=== PATIENT | female | born 1980 | race Caucasian/White ===

== ENCOUNTER 2018-02-02 13:53 | Outpatient (CLI) | payer OTHER ==
[~2018-02-02 13:53] MED LIST: NO HOME MEDS
[2018-02-05 11:12] LABS: VITAMIN D, 25-HYDROXY 20.7 ng/mL (30.0-100.0)
== END 2018-02-02 23:59 | disposition home or self-care (01) ==
LOC: LAB 13:53
PROVIDERS: ATTEND Physician Assistant Medical
DX: R53.83 Other fatigue (principal)
CPT/HCPCS: 36415; 82306; 84436; 84443; 84480

== ENCOUNTER 2018-12-21 14:54 | Outpatient (CLI) | payer OTHER ==
[2018-12-21 15:32] LABS: BASOPHILS % (AUTO) 0.8 % (0-1); EOSINOPHILS # (AUTO) 0.1 X10'3 (0-0.9); EOSINOPHILS % (AUTO) 1.9 % (0-6); HEMATOCRIT 39.5 % (35.0-45.0); HEMOGLOBIN 13.4 g/dl (12.0-16.0); LYMPHOCYTES # (AUTO) 1.1 X10'3 (1.1-4.8); LYMPHOCYTES % (AUTO) 19.2 % (21-51); MEAN CORPUSCULAR HEMOGLOBIN 31.2 PG (27.0-31.0); MEAN CORPUSCULAR HGB CONC 33.9 % (33.0-36.5); MEAN CORPUSCULAR VOLUME 92.2 FL (78-98); MEAN PLATELET VOLUME 6.9 FL (7.4-10.4); MONOCYTES # (AUTO) 0.3 X10'3 (0-0.9); MONOCYTES % (AUTO) 5.4 % (2-12); NEUTROPHILS # (AUTO) 4.2 X10'3 (1.8-7.7); NEUTROPHILS % (AUTO) 72.7 % (42-75); PLATELET COUNT 245 X10'3 (140-440); RED BLOOD COUNT 4.28 X10'6 (4.20-5.60); RED CELL DISTRIBUTION WIDTH 13.1 % (11.5-14.5); WHITE BLOOD COUNT 5.8 X10'3 (4.5-11.0)
[2018-12-21 15:57] LABS: ALANINE AMINOTRANSFERASE 36 U/L (12-78); ALBUMIN 3.6 G/DL (3.4-5.0); ALKALINE PHOSPHATASE 38 IU/L (46-116); ANION GAP 10 (8-16); ASPARTATE AMINO TRANSFERASE 21 U/L (10-37); BILIRUBIN,TOTAL 0.4 MG/DL (0.1-1.0); BLOOD UREA NITROGEN 16 MG/DL (7-18); BUN/CREATININE RATIO 23.2 (6.6-38.0); CALCIUM 8.2 MG/DL (8.5-10.1); CHLORIDE 102 MMOL/L (99-107); CHOL/HDL RATIO 2.5 (0.00-4.99); CHOLESTEROL 168 MG/DL (0-200); CREATININE 0.69 MG/DL (0.40-0.90); GLUCOSE 97 MG/DL (70-104); HDL CHOLESTEROL 68 MG/DL (35-60); LDL CHOLESTEROL 88 MG/DL (50-100); POTASSIUM 3.6 MMOL/L (3.5-5.1); SODIUM 138 MMOL/L (135-145); TOTAL CARBON DIOXIDE 25.6 MMOL/L (24-32); TOTAL PROTEIN 7.2 G/DL (6.4-8.2); TRIGLYCERIDES 68 MG/DL (20-135); eGFR > 90 ML/MIN
[2018-12-21 16:09] LABS: HEMOGLOBIN A1C 5.3 % (4.5-6.2)
[2018-12-23 08:11] LABS: THYROID PEROXIDASE AB 7 IU/mL (0-34); TRIIODOTHYRONINE (T3) 100 ng/dL (71-180)
[2018-12-23 13:11] LABS: FSH, SERUM 3.6 mIU/mL (.); LUTEINIZING HORMONE 10.4 mIU/mL (.); PROGESTERONE 0.8 ng/mL (.)
== END 2018-12-21 23:59 | disposition home or self-care (01) ==
LOC: LAB 14:54
PROVIDERS: ATTEND Physician Assistant Medical
DX: Z13.220 Encounter for screening for lipoid disorders (principal); R61 Generalized hyperhidrosis; N92.0 Excessive and frequent menstruation with regular cycle; Z87.891 Personal history of nicotine dependence
CPT/HCPCS: 36415; 80053; 80061; 82679; 83001; 83002; 83036; 84144; 84402; 84403; 84439; 84443; 84480; 85025; 86376

== ENCOUNTER 2019-01-02 12:43 | Outpatient (CLI) | payer OTHER | END 2019-01-02 23:59 | disposition home or self-care (01) | LOC: LAB 12:43 | PROVIDERS: ATTEND Physician Assistant Medical | DX: E55.9 Vitamin D deficiency, unspecified (principal); Z87.442 Personal history of urinary calculi; Z87.891 Personal history of nicotine dependence | CPT/HCPCS: 36415; 82306 ==

== ENCOUNTER 2019-08-28 09:13 | Outpatient (CLI) | payer OTHER | END 2019-08-28 23:59 | disposition home or self-care (01) | LOC: 64 CT 09:13 | PROVIDERS: ATTEND Surgery | DX: R10.9 Unspecified abdominal pain (principal) | CPT/HCPCS: 74176 ==

== ENCOUNTER 2019-11-23 08:51 | Emergency (ER) | payer OTHER ==
[~2019-11-23] VITALS: Ht 175.3 cm; Wt 98.0 kg
[2019-11-23 08:55] VITALS: BP 141/96
[2019-11-23] MEDS ORDERED: dexamethasone sod phosphate 10mg/ml inj PO STA (09:13)
[2019-11-23] MEDS ORDERED: AZIT-72 PO (09:16)
== END 2019-11-23 09:27 | disposition home or self-care (01) ==
LOC: ER 08:52
DX: J32.9 Chronic sinusitis, unspecified (principal); Z98.890 Other specified postprocedural states; Z88.8 Allergy status to other drugs, medicaments and biological substances; Z79.899 Other long term (current) drug therapy
CPT/HCPCS: 99283; J1100

== ENCOUNTER 2019-12-28 08:46 | Outpatient (CLI) | payer OTHER | END 2019-12-28 23:59 | disposition home or self-care (01) | LOC: LAB 08:46 | PROVIDERS: ATTEND Obstetrics & Gynecology Obstetrics | DX: Z00.00 Encounter for general adult medical examination without abnormal findings (principal); Z53.21 Procedure and treatment not carried out due to patient leaving prior to being seen by health care provider ==

== ENCOUNTER 2019-12-28 08:54 | Outpatient (CLI) | payer OTHER ==
[2019-12-28 09:36] LABS: BASOPHILS % (AUTO) 0.4 % (0-1); EOSINOPHILS # (AUTO) 0.1 X10'3 (0-0.9); EOSINOPHILS % (AUTO) 2.1 % (0-6); HEMATOCRIT 44.5 % (35.0-45.0); HEMOGLOBIN 15.3 g/dl (12.0-16.0); LYMPHOCYTES # (AUTO) 1.2 X10'3 (1.1-4.8); LYMPHOCYTES % (AUTO) 21.2 % (21-51); MEAN CORPUSCULAR HEMOGLOBIN 30.9 PG (27.0-31.0); MEAN CORPUSCULAR HGB CONC 34.4 g/dL (33.0-36.5); MONOCYTES # (AUTO) 0.3 X10'3 (0-0.9); MONOCYTES % (AUTO) 5.8 % (2-12); NEUTROPHILS # (AUTO) 3.9 X10'3 (1.8-7.7); NEUTROPHILS % (AUTO) 70.5 % (42-75); PLATELET COUNT 248 X10'3 (140-440); RED BLOOD COUNT 4.94 X10'6 (4.20-5.60); RED CELL DISTRIBUTION WIDTH 13.1 % (11.5-14.5); WHITE BLOOD COUNT 5.6 X10'3 (4.5-11.0)
[2019-12-28] MEDS ORDERED: iohexol 300mg/ml 100ml inj. ONE (09:40)
[2019-12-28 11:00] LABS: ALANINE AMINOTRANSFERASE 49 U/L (12-78); ALBUMIN 4.6 G/DL (3.4-5.0); ALBUMIN/GLOBULIN RATIO 1.1 (1.1-1.5); ALKALINE PHOSPHATASE 53 IU/L (46-116); ANION GAP 11 (8-16); ASPARTATE AMINO TRANSFERASE 26 U/L (10-37); BILIRUBIN,TOTAL 0.7 MG/DL (0.1-1.0); BLOOD UREA NITROGEN 10 MG/DL (7-18); BUN/CREATININE RATIO 14.7 (6.6-38.0); CHLORIDE 103 MMOL/L (99-107); CHOL/HDL RATIO 3.4 (0.00-4.99); CHOLESTEROL 215 MG/DL (0-200); CREATININE 0.68 MG/DL (0.40-0.90); GLUCOSE 88 MG/DL (70-104); HDL CHOLESTEROL 64 MG/DL (35-60); LDL CHOLESTEROL 137 MG/DL (50-100); POTASSIUM 4.1 MMOL/L (3.5-5.1); SODIUM 141 MMOL/L (135-145); TOTAL PROTEIN 8.8 G/DL (6.4-8.2); TRIGLYCERIDES 69 MG/DL (20-135); eGFR > 90 ML/MIN
[2019-12-28 12:05] LABS: HEMOGLOBIN A1C 5.3 % (4.5-6.2)
== END 2019-12-28 23:59 | disposition home or self-care (01) ==
LOC: 64 CT 08:54
PROVIDERS: ATTEND Surgery
DX: N83.201 Unspecified ovarian cyst, right side (principal); K43.9 Ventral hernia without obstruction or gangrene; M62.00 Separation of muscle (nontraumatic), unspecified site; R10.9 Unspecified abdominal pain
CPT/HCPCS: 36415; 74177; 80053; 80061; 83036; 84443; 85025; Q9967

== ENCOUNTER 2022-08-10 13:22 | Inpatient (IN) | payer BC, OTHER ==
[~2022-08-10] VITALS: Ht 175.3 cm; Wt 122.7 kg
[2022-08-10 14:59] LABS: BASOPHILS % (AUTO) 0.3 % (0-1); EOSINOPHILS # (AUTO) 0.1 X10'3 (0-0.9); EOSINOPHILS % (AUTO) 1.5 % (0-6); HEMATOCRIT 42.1 % (35.0-45.0); HEMOGLOBIN 14.6 g/dl (12.0-16.0); LYMPHOCYTES # (AUTO) 1.5 X10'3 (1.1-4.8); LYMPHOCYTES % (AUTO) 16.7 % (21-51); MEAN CORPUSCULAR HEMOGLOBIN 31.5 PG (27.0-31.0); MEAN CORPUSCULAR HGB CONC 34.7 g/dL (33.0-36.5); MEAN CORPUSCULAR VOLUME 90.9 FL (78-98); MEAN PLATELET VOLUME 7.2 FL (7.4-10.4); MONOCYTES # (AUTO) 0.5 X10'3 (0-0.9); MONOCYTES % (AUTO) 5.9 % (2-12); NEUTROPHILS # (AUTO) 6.6 X10'3 (1.8-7.7); NEUTROPHILS % (AUTO) 75.6 % (42-75); PLATELET COUNT 254 X10'3 (140-440); RED BLOOD COUNT 4.63 X10'6 (4.20-5.60); RED CELL DISTRIBUTION WIDTH 13.3 % (11.5-14.5); WHITE BLOOD COUNT 8.7 X10'3 (4.5-11.0)
[2022-08-10 15:05] LABS: ALANINE AMINOTRANSFERASE 36 U/L (12-78); ALBUMIN 3.6 G/DL (3.4-5.0); ALBUMIN/GLOBULIN RATIO 0.9 (1.1-1.5); ALKALINE PHOSPHATASE 48 IU/L (46-116); ANION GAP 11 (8-16); ASPARTATE AMINO TRANSFERASE 22 U/L (10-37); BILIRUBIN,TOTAL 0.4 MG/DL (0.1-1.0); BLOOD UREA NITROGEN 8 MG/DL (7-18); BUN/CREATININE RATIO 12.1 (6.6-38.0); CALCIUM 8.8 MG/DL (8.5-10.1); CHLORIDE 101 MMOL/L (99-107); CREATININE 0.66 MG/DL (0.40-0.90); GLUCOSE 97 MG/DL (70-104); LIPASE 59 U/L (73-393); POTASSIUM 3.9 MMOL/L (3.5-5.1); SODIUM 136 MMOL/L (135-145); TOTAL CARBON DIOXIDE 24.4 MMOL/L (24-32); TOTAL PROTEIN 7.4 G/DL (6.4-8.2); eGFR > 90 ML/MIN
[2022-08-10 15:10] LABS: COLOR,URINE YELLOW (Yellow); GLUCOSE, URINE NEGATIVE (Neg); KETONES,URINE TRACE mg/dl (Neg); LEUKOCYTE ESTERASE ,URINE NEGATIVE (Neg); NITRITES, URINE NEGATIVE (Neg); OCCULT BLOOD,URINE NEGATIVE (Neg); PH,URINE 6.5 (4.8-8.0); PROTEIN,URINE NEGATIVE (Neg); UROBILINOGEN,URINE 0.2 E.U/dL (0.2-1.0)
[2022-08-10 15:16] LABS: CLARITY,URINE SLIGHTLY CLOUDY (Clear); UA COLLECTION TYPE CLN CATCH MIDSTREAM
[2022-08-10 15:18] LABS: SQUAMOUS EPITHELIAL CELL,UR MANY /LPF (FEW)
[2022-08-10 15:19] LABS: MUCUS STRANDS MANY /LPF (Neg)
[2022-08-10 15:21] LABS: BACTERIA,URINE FEW /HPF (Neg); RBC,URINE NONE SEEN /HPF (0-2); URINE HCG NEGATIVE (NEG); WBC,URINE 0-4 /HPF (0-4)
[2022-08-10] MEDS ORDERED: ketorolac trometh. 30mg/ml inj. IV ONE (16:15)
[2022-08-10] MEDS ORDERED: normal saline 1000ML IV soln IVB ONE (16:15)
[2022-08-10] MEDS ORDERED: ondansetron/PF 4mg/2ml inj IV ONE (16:15)
[2022-08-10] MEDS: morphine 4 MG/ML inj SYRINge IV PRN ×2 (16:27→17:10)
[2022-08-10] MEDS ORDERED: magnesium 4gm in 100ml NS 100 ML IV PRN (17:15)
[2022-08-10] MEDS ORDERED: magnesium 2GM in 50ml NS 50 ML IV PRN (17:15)
[2022-08-10] MEDS ORDERED: ondansetron/PF 4mg/2ml inj IV PRN (17:15)
[2022-08-10] MEDS ORDERED: potassium CL 10mEq/100ml bag 100 ML IV PRN (17:15)
[2022-08-10] MEDS ORDERED: magnesium hydroxide 30ml (MOM) UD suspension PO PRN (17:15)
[2022-08-10] MEDS ORDERED: mag hydrox/Alum hydrox/simeth 30ml oral suspension PO PRN (17:15)
[2022-08-10] MEDS ORDERED: magnesium Cl slow-release 64mg tablet PO PRN (17:15)
[2022-08-10] MEDS ORDERED: HYDROmorphone/PF 0.2 MG/ML SYRINGE IV PRN (17:15)
[2022-08-10] MEDS ORDERED: metoclopramide 5 mg/ml inj IV PRN (17:15)
[2022-08-10] MEDS ORDERED: acetaminophen 325mg tablet PO PRN ×2 (17:15)
[2022-08-10] MEDS ORDERED: acetaminophen 650mg rectal suppository RC PRN (17:15)
[2022-08-10] MEDS ORDERED: POTASSIUM BICARB 20meq eff tab 20 MEQ TABLET.EFF PO PRN ×2 (17:15)
[2022-08-10] MEDS ORDERED: ondansetron 4mg rapidly disintigrating tab PO PRN (17:15)
[2022-08-10] MEDS ORDERED: bisacodyl 10mg suppository rectal RC PRN (17:15)
[2022-08-10 17:33] LABS: MAGNESIUM 1.8 MG/DL (1.5-2.4)
[2022-08-10] MEDS ORDERED: LEVA15HF6 PO (17:45)
[2022-08-10] MEDS ORDERED: LISI10TA27 PO (17:45)
--- NOTE | 2022-08-10 17:47 | NUR ---
patient received in room 6.
[2022-08-10] MEDS ORDERED: LIDOcaine 2% 10ml TOPICAL JELLY (Urojet) MM ONE (18:10)
[2022-08-10] MEDS ORDERED: albuterol 2.5 MG/3 ML nebule NEB PRN (18:15)
[2022-08-10] MEDS: normal saline 1000ml 1,000 ML IV SCH (19:16)
[2022-08-10] MEDS: K and/or MAG REPLACEMENT MC SCH (19:59)
[2022-08-10] MEDS: docusate sod 100mg capsule PO SCH (20:00)
[2022-08-10] MEDS: HYDROmorphone inj. 0.5 MG/0.5 ML DISP.SYRIN IV PRN (21:11)
[2022-08-11] VITALS (16 sets, daily range): BP systolic 130–157; BP diastolic 64–102
[2022-08-11] MEDS: HYDROmorphone inj. 0.5 MG/0.5 ML DISP.SYRIN IV PRN ×6 (00:54→20:15)
[2022-08-11] MEDS: normal saline 1000ml 1,000 ML IV SCH ×3 (03:12→23:15)
--- NOTE | 2022-08-11 03:12 | NUR ---
Patient up to the bathroom w/o problem.
[2022-08-11] MEDS: K and/or MAG REPLACEMENT MC SCH ×2 (07:43→20:00)
[2022-08-11] MEDS: lisinopril 10 MG tablet PO SCH (07:52)
[2022-08-11 08:00] LABS: BASOPHILS % (AUTO) 0.4 % (0-1); EOSINOPHILS # (AUTO) 0.1 X10'3 (0-0.9); EOSINOPHILS % (AUTO) 2.1 % (0-6); HEMATOCRIT 36.9 % (35.0-45.0); HEMOGLOBIN 12.7 g/dl (12.0-16.0); LYMPHOCYTES # (AUTO) 0.9 X10'3 (1.1-4.8); LYMPHOCYTES % (AUTO) 17.2 % (21-51); MEAN CORPUSCULAR HEMOGLOBIN 31.1 PG (27.0-31.0); MEAN CORPUSCULAR HGB CONC 34.4 g/dL (33.0-36.5); MEAN CORPUSCULAR VOLUME 90.4 FL (78-98); MEAN PLATELET VOLUME 7.2 FL (7.4-10.4); MONOCYTES # (AUTO) 0.3 X10'3 (0-0.9); MONOCYTES % (AUTO) 6.3 % (2-12); NEUTROPHILS # (AUTO) 4.1 X10'3 (1.8-7.7); PLATELET COUNT 205 X10'3 (140-440); RED BLOOD COUNT 4.09 X10'6 (4.20-5.60); RED CELL DISTRIBUTION WIDTH 13.3 % (11.5-14.5); WHITE BLOOD COUNT 5.5 X10'3 (4.5-11.0)
[2022-08-11] MEDS: docusate sod 100mg capsule PO SCH ×2 (08:00→20:13)
[2022-08-11 08:28] LABS: ALANINE AMINOTRANSFERASE 26 U/L (12-78); ALBUMIN 2.9 G/DL (3.4-5.0); ALKALINE PHOSPHATASE 38 IU/L (46-116); ANION GAP 7 (8-16); ASPARTATE AMINO TRANSFERASE 19 U/L (10-37); BILIRUBIN,TOTAL 0.4 MG/DL (0.1-1.0); BLOOD UREA NITROGEN 7 MG/DL (7-18); BUN/CREATININE RATIO 13.2 (6.6-38.0); CALCIUM 7.8 MG/DL (8.5-10.1); CHLORIDE 107 MMOL/L (99-107); CREATININE 0.53 MG/DL (0.40-0.90); GLUCOSE 93 MG/DL (70-104); MAGNESIUM 1.8 MG/DL (1.5-2.4); POTASSIUM 3.8 MMOL/L (3.5-5.1); SODIUM 140 MMOL/L (135-145); TOTAL CARBON DIOXIDE 26.1 MMOL/L (24-32); TOTAL PROTEIN 5.9 G/DL (6.4-8.2); eGFR > 90 ML/MIN
[2022-08-11] MEDS ORDERED: BUPIVAcaine/PF 2.5 mg/ml (0.25%) 30ml vial ONE (10:57)
[2022-08-11] MEDS ORDERED: morphine 4 MG/ML inj SYRINge IV PRN (11:10)
[2022-08-11] MEDS ORDERED: labetalol 20mg/4ml (5mg/ml) syringe IV PRN (11:10)
[2022-08-11] MEDS ORDERED: morphine 2 MG/ML inj. syringe IV PRN (11:10)
[2022-08-11] MEDS ORDERED: ringers solution, lacted 1,000 ML IV SCH (11:10)
[2022-08-11] MEDS ORDERED: ondansetron/PF 4mg/2ml inj IV PRN (11:10)
[2022-08-11] MEDS ORDERED: acetaminophen 1,000mg/100ml IV 100 ML IV PRN (11:10)
[2022-08-11] MEDS ORDERED: hydrALAZINE 20mg/ml inj. IV PRN (11:10)
[2022-08-11] MEDS ORDERED: proCHLORperazine 10 MG/2 ml inj IV PRN (11:10)
[2022-08-11] MEDS ORDERED: meperidine/PF 25mg/ml syringe IV PRN ×3 (11:10)
[2022-08-11] MEDS ORDERED: sevoflurane 250ml liquid IH ONE (11:26)
[2022-08-11] MEDS ORDERED: midazolam 1 mg/ML 2ml injection ONE (11:34)
[2022-08-11] MEDS ORDERED: fentaNYL /PF 50mcg/ml 5ml ampule ONE (11:36)
[2022-08-11] MEDS ORDERED: clindamycin-Cleocin 900mg/D5W 50 ML IV ONE (11:45)
[2022-08-11] MEDS ORDERED: rocuronium 10mg/ml inj IV ONE ×2 (11:50→13:09)
[2022-08-11] MEDS ORDERED: dexamethasone sod phosphate 4mg/ml inj. ONE (11:50)
[2022-08-11] MEDS ORDERED: LIDOcaine 2% (20mg/ml) 5ml vial ONE (11:51)
[2022-08-11] MEDS ORDERED: propofol inj 20 ML IV ONE (11:51)
[2022-08-11] MEDS ORDERED: ondansetron/PF 4mg/2ml inj ONE (11:51)
[2022-08-11] MEDS ORDERED: neostigmine methylsulfate 1 MG/ML 10ml vial ONE (13:26)
[2022-08-11] MEDS ORDERED: glycopyrrolate 0.2mg/ml inj ONE (13:26)
--- NOTE | 2022-08-11 13:29 | NUR ---
Received from OR via HOSPITAL BED, accompanied by Anesthesiologist and report given by TOM Anesthesiologist. PATIENT WAKING UP, DENIES PAIN, V/S WNL, SCD ON , PIV 20G LAC, DERMABONDED LAPS SITES X4 CLOSED C/D/I TO ABDOMEN. F/C DRAINING CLEAR YELLOW URINE. Addendum: 08/11/22 at 1346 by aSm Champion RN Amended: Links added.
--- NOTE | 2022-08-11 14:12 | NUR ---
received report from jon deshpande in recovery
--- NOTE | 2022-08-11 14:24 | NUR ---
PATIENT HAS MET ALL CRITERIA FOR TRANSFER TO ORTHO FLOOR. VSS. DRESSINGS INTACT. BED LOW, CALL LIGHT PRESENT AND 2 RAILS UP. RN PRESENT TO ACCEPT CARE OF PATIENT AND REPORT HAS BEEN CALLED. ALL QUESTIONS ANSWERED TO ACCEPTING RN. Addendum: 08/11/22 at 1428 by Sam Champion RN Amended: Links added.
--- NOTE | 2022-08-11 18:08 | NUR ---
gave report to jon kemp
[2022-08-11] MEDS ORDERED: HYDROcodone/acetaminophen 10/325mg tab PO PRN (21:25)
--- NOTE | 2022-08-11 21:29 | NUR ---
Patient was requesting PO pain medications r/t feeling like the dilaudid may be too strong. She also was requesting to have something available for anxiety as being in the hospital can make her feel more anxious. MD Jaeger notified of patient request. New orders received for Platinum 5-325mg 1 tab PO Q4H PRN for mild-moderate pain. Platinum 10-325mg 1 tab Q6H PRN for sever pain. Ativan 1mg PO Q8h for anxiety.
[2022-08-11] MEDS ORDERED: LORazepam 1 MG tablet PO PRN (21:30)
[2022-08-12] MEDS: HYDROcodone/acetaminophen 5mg/325mg tablet PO PRN ×3 (01:53→12:02)
[2022-08-12 02:00] VITALS: BP 141/74
[2022-08-12 06:00] VITALS: BP 124/73
--- NOTE | 2022-08-12 06:23 | NUR ---
Report given to Alexandria GARZA.
--- NOTE | 2022-08-12 06:30 | NUR ---
Patient in room ORTH[facility] 4016. I have received report from GREG Hussein and had the opportunity to ask questions and assume patient care.
[2022-08-12 07:15] LABS: BASOPHILS % (AUTO) 0.2 % (0-1); EOSINOPHILS % (AUTO) 0.7 % (0-6); HEMATOCRIT 33.3 % (35.0-45.0); HEMOGLOBIN 11.6 g/dl (12.0-16.0); LYMPHOCYTES # (AUTO) 1.1 X10'3 (1.1-4.8); LYMPHOCYTES % (AUTO) 17.5 % (21-51); MEAN CORPUSCULAR HEMOGLOBIN 31.6 PG (27.0-31.0); MEAN CORPUSCULAR HGB CONC 34.8 g/dL (33.0-36.5); MONOCYTES # (AUTO) 0.4 X10'3 (0-0.9); MONOCYTES % (AUTO) 7.1 % (2-12); NEUTROPHILS # (AUTO) 4.7 X10'3 (1.8-7.7); NEUTROPHILS % (AUTO) 74.5 % (42-75); PLATELET COUNT 199 X10'3 (140-440); RED BLOOD COUNT 3.66 X10'6 (4.20-5.60); RED CELL DISTRIBUTION WIDTH 13.2 % (11.5-14.5); WHITE BLOOD COUNT 6.3 X10'3 (4.5-11.0)
[2022-08-12 07:32] LABS: ALANINE AMINOTRANSFERASE 23 U/L (12-78); ALBUMIN 2.7 G/DL (3.4-5.0); ALBUMIN/GLOBULIN RATIO 0.9 (1.1-1.5); ALKALINE PHOSPHATASE 34 IU/L (46-116); ANION GAP 7 (8-16); ASPARTATE AMINO TRANSFERASE 18 U/L (10-37); BILIRUBIN,TOTAL 0.3 MG/DL (0.1-1.0); BLOOD UREA NITROGEN 6 MG/DL (7-18); BUN/CREATININE RATIO 12.2 (6.6-38.0); CALCIUM 7.4 MG/DL (8.5-10.1); CHLORIDE 106 MMOL/L (99-107); CREATININE 0.49 MG/DL (0.40-0.90); GLUCOSE 95 MG/DL (70-104); MAGNESIUM 1.8 MG/DL (1.5-2.4); POTASSIUM 3.4 MMOL/L (3.5-5.1); SODIUM 138 MMOL/L (135-145); TOTAL CARBON DIOXIDE 25.2 MMOL/L (24-32); TOTAL PROTEIN 5.7 G/DL (6.4-8.2); eGFR > 90 ML/MIN
[2022-08-12] MEDS: docusate sod 100mg capsule PO SCH (07:50)
[2022-08-12] MEDS: lisinopril 10 MG tablet PO SCH (07:51)
[2022-08-12] MEDS: K and/or MAG REPLACEMENT MC SCH (08:00)
[2022-08-12] MEDS: normal saline 1000ml 1,000 ML IV SCH (09:15)
[2022-08-12 10:00] VITALS: BP 127/66
--- NOTE | 2022-08-12 11:28 | NUR ---
Potassium replacement for level 3.4, declined by pt.
[2022-08-12] MEDS ORDERED: HYDR-3964 PO (11:33)
--- NOTE | 2022-08-12 12:13 | NUR ---
Discharge instructions and medications reviewed. New prescriptions e-scripted to [facility]. Pt instructed to follow up with Dr Mcallister in 1-2 weeks, and to return to ED with any new or worsening symptoms. Post op education provided to pt and significant other. Pt states understanding and willingness to comply with all discharge instructions. IV DC'd, cannula intact. Ride pending.
--- NOTE | 2022-08-12 12:46 | NUR ---
Pt discharged to home with all belongings, in private vehicle accompanied by boyfriend.
== END 2022-08-12 12:43 | disposition home or self-care (01) | DRG 336 ==
LOC: ER 16:32 → ED HOLD 17:19 → ORTHO 4S 08-11 14:25
PROVIDERS: ADMIT Family Medicine; ATTEND Family Medicine
PROC: 0D9670Z Drainage of Stomach with Drainage Device, Via Natural or Artificial Opening (ICD-10-PCS; 2022-08-10)
PROC: 0DNW4ZZ Release Peritoneum, Percutaneous Endoscopic Approach (ICD-10-PCS; 2022-08-11)
PROC: 0DNU4ZZ Release Omentum, Percutaneous Endoscopic Approach (ICD-10-PCS; principal; 2022-08-11 11:26)
DX: K56.51 Intestinal adhesions [bands], with partial obstruction (principal); Z68.41 Body mass index [BMI] 40.0-44.9, adult; I10 Essential (primary) hypertension; E66.9 Obesity, unspecified; N83.201 Unspecified ovarian cyst, right side; Z20.822 Contact with and (suspected) exposure to COVID-19; Z86.16 Personal history of COVID-19; Z87.442 Personal history of urinary calculi; Z98.891 History of uterine scar from previous surgery; Z79.899 Other long term (current) drug therapy; Z88.8 Allergy status to other drugs, medicaments and biological substances; Z98.51 Tubal ligation status
CPT/HCPCS: 96361; 96374; 96375; 99285; Z7506; Z7508; 36415; 74176; 80053; 81001; 81025; 83690; 83735; 85025; 87081; 87635; 93005; A4215; A4314; A4615; A4618; A7000; G0378; J0131; J1100; J1170; J1885; J2175; J2250; J2270; J2405; J2704; J2710; J3010; J3490; J7030; J7120